=== PATIENT | female | born 1970 | race Two or more races ===

== ENCOUNTER 2021-06-25 08:32 | Day surgery (SDC) | payer OTHER ==
[2021-06-25] MEDS ORDERED: NAPR500T14 PO (11:06)
[2021-06-25] MEDS ORDERED: MORGIDOX100 MG PO (11:06)
== END 2021-06-25 16:05 | disposition home or self-care (01) ==
LOC: CIR.AMB 08:32
PROVIDERS: ATTEND Obstetrics & Gynecology
DX: N72 Inflammatory disease of cervix uteri (principal); Z86.16 Personal history of COVID-19; G43.909 Migraine, unspecified, not intractable, without status migrainosus; K29.70 Gastritis, unspecified, without bleeding; E66.9 Obesity, unspecified; Z20.822 Contact with and (suspected) exposure to COVID-19

== ENCOUNTER 2022-05-07 05:40 | Day surgery (SDC) | payer OTHER ==
[~2022-05-07] VITALS: Ht 152.4 cm; Wt 83.9 kg
[~2022-05-07 05:40] MED LIST: ATACAND4 MG PO; GABAPENTIN300 MG PO; MORGIDOX100 MG PO; NAPR500T14 PO
== END 2022-05-07 12:30 | disposition home or self-care (01) ==
LOC: CIR.AMB 05:40
PROVIDERS: ATTEND Anesthesiology Pain Medicine
DX: M48.02 Spinal stenosis, cervical region (principal); M99.71 Connective tissue and disc stenosis of intervertebral foramina of cervical region; I10 Essential (primary) hypertension

== ENCOUNTER → 2022-12-02 | Day surgery (SDC) | payer OTHER ==
[2022-11-29 08:23] LABS: INR 1.03; PARTIAL THROMBOPLASTIN TIME 28.5 SECONDS (22.0-34.0); PROTHROMBIN TIME 10.8 SECONDS (9.0-11.5)
[2022-11-29 09:08] LABS: PH,URINE 6.5 (5.0-8.0); URINE APPEARANCE Clear; URINE BILIRRUBIN Negative (NEGATIVE); URINE BLOOD Negative; URINE COLOR Yellow; URINE GLUCOSE Negative (NEGATIVE); URINE LEUKOCYTE Negative; URINE NITRATE Negative; URINE PROTEIN Negative (NEGATIVE); URINE UROBILINOGEN 0.2 E.U./dl
[2022-11-29 09:11] LABS: HEMATOCRIT 44.4 % (36.0-45.00); HEMOGLOBIN 15.2 g/dL (12.0-15.00); MEAN CELL VOLUME 89.7 fL (80.00-100.00); MEAN CORPUSCULAR HEMOGLOBIN 30.7 pg (27.00-32.0); MEAN CORPUSCULAR HGB CONC 34.3 g/dl (32.0-36.0); PLATELET COUNT 252 K/uL (150-450); RED BLOOD COUNT 4.95 M/uL (4.00-6.00); RED CELL DISTRIBUTION WIDTH 12.9 % (11.5-14.5)
[2022-11-29 09:12] LABS: URINE BACTERIA 1120.1 uL (0.0-1933); URINE EPITHELIAL CELLS 9.4 uL (0.0-38.8); URINE RBC 11.6 uL (0.0-20.8); URINE WBC 5.7 uL (0.0-23.2)
[2022-11-29 09:37] LABS: ALBUMIN 3.8 gm/dL (3.4-5.0); BILIRUBIN TOTAL 0.5 mg/dL (0.3-1.2); CALCIUM 8.9 mg/dL (8.5-10.1); CREATININE SERUM 0.67 mg/dL (0.55-1.02); GFR 92.79; GLOBULINA 3.4 G/DL (2.4-3.5); POTASSIUM 3.91 mEq/L (3.5-5.1); TOTAL PROTEIN 7.2 gm/dL (6.4-8.2); TSH 2.5 uIU/mL (0.358-3.74)
[~2022-12-02] VITALS: Ht 152.4 cm; Wt 83.9 kg
[~2022-12-02] MED LIST changes: +CANDESARTAN CILE8 MG; +GABAP PO; +MULTIVI PO
== END | disposition home or self-care (01) ==
LOC: ADM 11-29 07:00 → CIR.AMB 05:52
PROVIDERS: ATTEND Obstetrics & Gynecology
DX: N95.0 Postmenopausal bleeding (principal); D25.9 Leiomyoma of uterus, unspecified; Z20.822 Contact with and (suspected) exposure to COVID-19; I10 Essential (primary) hypertension